=== PATIENT | female | born 1955 | race Caucasian/White ===

== ENCOUNTER → 2017-08-07 | Outpatient (CLI) | payer BC ==
--- NOTE | 2017-08-08 13:43 | RAD ---
THYROID ULTRASOUND History: Thyroid nodules. Comparison: Thyroid ultrasound, October 14, 2015. Technique: Multiple grayscale and color Doppler images of the thyroid gland were obtained. Findings: Measurements in length, AP (height), and transverse (width), respectively, unless otherwise stated. The isthmus measures 3 mm AP and is homogeneous. Right thyroid lobe measures 5.7 x 1.4 x 1.3 cm. In the upper right thyroid lobe there is a solid, hypoechoic, well-circumscribed nodule measuring 12 x 8 x 9 mm. Nodule previously measured 10 x 7 x 10 mm. Nodule is wider than tall and contains no echogenic foci. Therefore TR4. Ultrasound follow-up is suggested. In the inferior right thyroid lobe there is a 9 x 5 x 6 mm hypoechoic nodule with an internal macrocalcification with shadowing. Left thyroid lobe measures 5 x 1.1 x 1 cm. There is a 4 mm hypoechoic upper left thyroid nodule. ACR Thyroid Imaging, Reporting And Data System (TI-RADS): White Paper Of The ACR TI-RADS Committee. Journal of the [employer], volume 14, issue 5, pages 587-595 (June 2016). IMPRESSION: Recommend ultrasound follow-up in 12 months of the upper right thyroid nodule. Electronically signed by: Dany Nelson MD (08/08/2017 1:40 PM) [id number]
== END | disposition home or self-care (01) ==
LOC: US 13:56
PROVIDERS: ATTEND Nurse Practitioner Adult Health
DX: E04.1 Nontoxic single thyroid nodule (principal)
CPT/HCPCS: 76536

== ENCOUNTER → 2021-02-02 | Outpatient (CLI) | payer MEDICARE ==
--- NOTE | 2021-02-02 14:16 | RAD ---
EXAM: AP, lateral and oblique views of bilateral knees DATE: 02/02/2021 12:08 PM INDICATION: Reason: BILATERAL KNEE PAIN / Spl. Instructions: / History: COMPARISON: No Prior FINDINGS: Right: No acute fracture or dislocation. Small right knee joint effusion. Mild medial and lateral compartme nt joint space narrowing with tricompartmental osteophytes. Left: No acute fracture or dislocation. No joint effusion. Mild medial joint space narrowing with tricompa rtmental osteophytes. IMPRESSION: No acute fracture or dislocation. Moderate bilateral knee joint osteoarthritis Electronically signed by: Butch Felder MD (02/02/2021 2:14 PM) NIC
== END ==
LOC: RAD 12:00
PROVIDERS: ATTEND Family Medicine
DX: M17.0 Bilateral primary osteoarthritis of knee (principal); M25.461 Effusion, right knee; M25.761 Osteophyte, right knee; M25.762 Osteophyte, left knee; M25.861 Other specified joint disorders, right knee; M25.862 Other specified joint disorders, left knee
CPT/HCPCS: 73562-50